=== PATIENT | female | born 1955 | race Caucasian/White ===

== ENCOUNTER 2023-05-19 18:50 | Observation (INO) | payer OTHER, MEDICAID ==
[2023-05-19] MEDS ORDERED: Acetaminophen 325 MG TAB PO PRN (22:15)
[2023-05-19] MEDS ORDERED: HYDROcodone/Acetaminophen 5/325 mg Tablet PO PRN (22:15)
[2023-05-19] MEDS ORDERED: Ondansetron PF 4 MG/2 ML Vial IVP PRN (22:15)
[2023-05-19 22:57] LABS: Troponin I Less than 0.010 ng/mL (< 0.028)
[2023-05-19 23:20] VITALS: BMI 24.9
[2023-05-19] MEDS ORDERED: Gabapentin 300 MG CAP PO SCH (23:45)
[2023-05-19] MEDS ORDERED: hydrOXYzine 25 MG TAB PO PRN (23:47)
[2023-05-20] MEDS ORDERED: Lorazepam 1 MG TAB PO SCH ×2 (00:30→21:00)
[2023-05-20] MEDS: HYDROcodone/Acetaminophen 10/325 mg Tablet PO PRN ×3 (00:38→14:42)
[2023-05-20 02:13] LABS: #Basophils 0.1 10x3/uL (0.0-0.2); #Eosinphils 0.1 10x3/uL (0.0-0.5); #Monocytes 0.9 10x3/uL (0.0-1.1); #Neutrophils 5.4 10x3/uL (1.5-8.4); %Basophils 0.7 % (0.0-2.0); %Eosinophils 1.5 % (0.0-6.0); %Monocytes 9.7 % (0.0-10.0); %Neutrophils 58.9 % (40.0-75.0); Hematocrit 43.8 % (34.9-44.5); Hemoglobin 14.1 g/dL (12.0-15.5); Mean Corpuscular HGB CONC 32.2 g/dL (32.0-36.0); Mean Corpuscular Hemoglobin 30.7 pg (27.0-33.0); Mean Corpuscular Volume 95.2 fl (81.6-98.3); Mean Platelet Volume 10.6 fl (7.4-10.4); Platelet Count 285 10x3/uL (150-450); RBC Distribution Width 13.2 % (11.5-14.5); White Blood Cell (WBC) Count 9.1 10x3/uL (3.5-10.5)
[2023-05-20] MEDS ORDERED: HYDROmorphone 0.5 MG/0.5 ML SYRINGE SLOW IVP SCH (02:15)
[2023-05-20 02:24] LABS: Troponin I Less than 0.010 ng/mL (< 0.028)
[2023-05-20 02:27] LABS: Anion Gap 13 mmol/L (10-20); BUN (Urea Nitrogen) 22 mg/dL (9.8-20.1); Calc. Creatinine Clearance 46 mL/min (70-130); Calcium 8.6 mg/dL (7.8-10.44); Carbon Dioxide 22 mmol/L (23-31); Cardiac Risk 5.6 (Less than 4.5); Chloride 109 mmol/L (98-107); Cholesterol 161 mg/dl (< 200 Desired); Estimated GFR 48; Glucose 156 mg/dL (80-115); HDL Cholesterol 29 mg/dL (>60 Neg Risk); LDL Cholesterol, Calculated 82 mg/dL; Potassium 3.8 mmol/L (3.5-5.1); Sodium 140 mmol/L (136-145); Triglycerides 252 mg/dL (Less than 150)
[2023-05-20] MEDS ORDERED: HumaLOG 300 UNITS/3 ML VIAL SC PRN ×2 (03:29)
[2023-05-20] MEDS ORDERED: Glucagon 1 MG/ML KIT IM PRN (03:29)
[2023-05-20] MEDS ORDERED: Dextrose 5% in Water 1,000 ML IV PRN (03:29)
[2023-05-20] MEDS ORDERED: Dextrose 50% Abboject 50 ML SYRINGE SLOW IVP PRN (03:29)
[2023-05-20] MEDS ORDERED: Sodium Chloride 0.9% 1,000 ML IV SCH (04:00)
[2023-05-20] MEDS ORDERED: AXITINIB 1 MG PO SCH (09:00)
[2023-05-20] MEDS ORDERED: FLU VACC QS2023(65UP)/MF59C/PF 60 MCG/0.5 ML SYRINGE IM ONE (09:00)
[2023-05-20] MEDS ORDERED: Escitalopram Oxalate 10 mg Tablet PO SCH (09:00)
[2023-05-20] MEDS ORDERED: Aspirin 81 mg Enteric Coated Tablet PO SCH (09:00)
[2023-05-20 12:54] VITALS: BP 127/68; TEMP 97.6
[2023-05-20 15:35] LABS: Hemoglobin A1c 5.7 % (4.0-6.0)
[2023-05-20] MEDS ORDERED: Gabapentin 300 MG CAP PO SCH (21:00)
== END 2023-05-20 16:00 | disposition home or self-care (01) ==
LOC: CSHTELE 18:50
PROVIDERS: ADMIT Family Medicine; ATTEND Family Medicine
DX: R07.9 Chest pain, unspecified (principal); I25.10 Atherosclerotic heart disease of native coronary artery without angina pectoris; E11.9 Type 2 diabetes mellitus without complications; I10 Essential (primary) hypertension; E03.9 Hypothyroidism, unspecified; G40.909 Epilepsy, unspecified, not intractable, without status epilepticus; G43.909 Migraine, unspecified, not intractable, without status migrainosus; C64.2 Malignant neoplasm of left kidney, except renal pelvis; Z88.5 Allergy status to narcotic agent; Z88.6 Allergy status to analgesic agent; Z79.899 Other long term (current) drug therapy; Z79.84 Long term (current) use of oral hypoglycemic drugs; Z79.891 Long term (current) use of opiate analgesic; Z95.1 Presence of aortocoronary bypass graft; Z90.710 Acquired absence of both cervix and uterus
CPT/HCPCS: 36415; 36416; 80048; 80061; 83036; 84484; 85025; 93005; 93010; 94760; 96374; G0378; J1170; J7050

== ENCOUNTER 2023-06-09 12:02 | Inpatient (IN) | payer OTHER, MEDICAID ==
[2023-06-09 12:34] LABS: #Basophils 0.1 10x3/uL (0.0-0.2); #Eosinphils 0.1 10x3/uL (0.0-0.5); #Monocytes 0.7 10x3/uL (0.0-1.1); #Neutrophils 4.6 10x3/uL (1.5-8.4); %Basophils 0.8 % (0.0-2.0); %Eosinophils 1.8 % (0.0-6.0); %Lymphocytes 29.6 % (18.0-47.0); %Monocytes 8.9 % (0.0-10.0); %Neutrophils 58.6 % (40.0-75.0); Hematocrit 45.5 % (34.9-44.5); Hemoglobin 15.1 g/dL (12.0-15.5); Mean Corpuscular HGB CONC 33.2 g/dL (32.0-36.0); Mean Corpuscular Hemoglobin 31.4 pg (27.0-33.0); Mean Corpuscular Volume 94.6 fl (81.6-98.3); Mean Platelet Volume 10.8 fl (7.4-10.4); Platelet Count 288 10x3/uL (150-450); RBC Distribution Width 13.2 % (11.5-14.5); Red Blood Cell (RBC) Count 4.81 10x6/uL (3.90-5.03); White Blood Cell (WBC) Count 7.9 10x3/uL (3.5-10.5)
[2023-06-09 12:49] LABS: ALT (SGPT) 12 U/L (8-55); AST (SGOT) 14 U/L (5-34); Albumin 3.7 g/dL (3.4-4.8); Alkaline Phosphatase 72 U/L (40-110); Anion Gap 14 mmol/L (10-20); BUN (Urea Nitrogen) 14 mg/dL (9.8-20.1); Bilirubin, Total 0.3 mg/dL (0.2-1.2); Calc. Creatinine Clearance 0 mL/min (70-130); Calcium 8.4 mg/dL (7.8-10.44); Carbon Dioxide 19 mmol/L (23-31); Chloride 109 mmol/L (98-107); Estimated GFR 45; Globulin 2.4 g/dL (2.4-3.5); Glucose 153 mg/dL (80-115); Potassium 4.2 mmol/L (3.5-5.1); Protein, Total 6.1 g/dL (5.8-8.1); Sodium 138 mmol/L (136-145)
[2023-06-09 12:52] LABS: Troponin I Less than 0.010 ng/mL (< 0.028)
[2023-06-09] MEDS ORDERED: Aspirin Chewable 81 MG TAB ONE ×2 (12:52→15:50)
[2023-06-09] MEDS ORDERED: Metoclopramide HCl 10 MG/2 ML VIAL ONE (14:24)
[2023-06-09] MEDS ORDERED: diphenhydrAMINE 50 MG/ML VIAL ONE (14:27)
[2023-06-09] MEDS ORDERED: Nitroglycerin 0.4 MG TAB (25 Tab Bottle) SL PRN (15:59)
[2023-06-09] MEDS ORDERED: Dextrose 50% Abboject 50 ML SYRINGE SLOW IVP PRN (16:28)
[2023-06-09] MEDS ORDERED: Dextrose 5% in Water 1,000 ML IV PRN (16:28)
[2023-06-09] MEDS ORDERED: Glucagon 1 MG/ML KIT IM PRN (16:28)
[2023-06-09] MEDS ORDERED: HumaLOG 300 UNITS/3 ML VIAL SC PRN ×2 (16:28)
[2023-06-09 16:42] LABS: Magnesium 1.8 mg/dL (1.6-2.6)
[2023-06-09 16:49] LABS: Troponin I Less than 0.010 ng/mL (< 0.028)
[2023-06-09] MEDS ORDERED: Acetaminophen 325 MG TAB PO PRN (18:07)
[2023-06-09] MEDS ORDERED: Acetaminophen 500 MG TAB ONE (19:23)
[2023-06-09] MEDS ORDERED: HYDROcodone/Acetaminophen 10/325 mg Tablet ONE (20:05)
[2023-06-09 21:02] VITALS: BMI 24.9
[2023-06-09] MEDS ORDERED: Glimepiride 2 MG TAB PO SCH (23:30)
[2023-06-10 01:22] LABS: Troponin I 0.013 ng/mL (< 0.028)
[2023-06-10 05:51] LABS: Anion Gap 11 mmol/L (10-20); BUN (Urea Nitrogen) 19 mg/dL (9.8-20.1); Calc. Creatinine Clearance 44 mL/min (70-130); Calcium 8.5 mg/dL (7.8-10.44); Carbon Dioxide 24 mmol/L (23-31); Chloride 111 mmol/L (98-107); Estimated GFR 46; Potassium 4.3 mmol/L (3.5-5.1); Sodium 142 mmol/L (136-145)
[2023-06-10 05:56] LABS: Glucose 50 mg/dL (80-115)
[2023-06-10 06:00] LABS: #Basophils 0.1 10x3/uL (0.0-0.2); #Eosinphils 0.1 10x3/uL (0.0-0.5); #Monocytes 0.8 10x3/uL (0.0-1.1); #Neutrophils 2.7 10x3/uL (1.5-8.4); %Eosinophils 1.9 % (0.0-6.0); %Lymphocytes 48.4 % (18.0-47.0); %Neutrophils 37.6 % (40.0-75.0); Hematocrit 44.2 % (34.9-44.5); Hemoglobin 14.4 g/dL (12.0-15.5); Mean Corpuscular HGB CONC 32.6 g/dL (32.0-36.0); Mean Corpuscular Hemoglobin 31.2 pg (27.0-33.0); Mean Corpuscular Volume 95.7 fl (81.6-98.3); Platelet Count 262 10x3/uL (150-450); RBC Distribution Width 13.3 % (11.5-14.5); Red Blood Cell (RBC) Count 4.62 10x6/uL (3.90-5.03); White Blood Cell (WBC) Count 7.2 10x3/uL (3.5-10.5)
[2023-06-10] MEDS ORDERED: Fioricet 325/50/40 mg Tablet PO PRN (07:23)
[2023-06-10] MEDS ORDERED: Promethazine 25 MG TAB PO PRN (07:23)
[2023-06-10] MEDS ORDERED: hydrOXYzine 25 MG TAB PO PRN (07:23)
[2023-06-10] MEDS ORDERED: Ondansetron ODT 4 MG TAB SL PRN (07:23)
[2023-06-10] MEDS ORDERED: Topiramate 100 MG TAB PO SCH (09:00)
[2023-06-10] MEDS ORDERED: Escitalopram Oxalate 10 mg Tablet PO SCH (09:00)
[2023-06-10] MEDS: Topiramate 100 MG TAB PO SCH ×2 (09:34→20:59)
[2023-06-10] MEDS: Glimepiride 2 MG TAB PO SCH ×2 (09:34→17:00)
[2023-06-10] MEDS: Methocarbamol 500 MG TAB PO SCH ×3 (09:37→20:58)
[2023-06-10] MEDS: Lisinopril 20 MG TAB PO SCH (09:38)
[2023-06-10] MEDS: Aspirin Chewable 81 MG TAB PO SCH (09:39)
[2023-06-10] MEDS: NIFEdipine XL 60 MG ER.TAB PO SCH (09:39)
[2023-06-10] MEDS: Potassium Chloride 10 MEQ TAB PO SCH (09:43)
[2023-06-10] MEDS ORDERED: Lidocaine 4% Patch TD PRN (09:56)
[2023-06-10] MEDS ORDERED: Escitalopram Oxalate 20 mg Tablet PO SCH (10:00)
[2023-06-10] MEDS: HYDROcodone/Acetaminophen 10/325 mg Tablet PO PRN ×2 (10:07→18:09)
[2023-06-10] MEDS ORDERED: INLYTA PO SCH ×2 (10:15→21:00)
[2023-06-10] MEDS ORDERED: hydrALAZINE 20 MG/ML VIAL SLOW IVP PRN (13:15)
[2023-06-10] MEDS: SUMAtriptan Succinate 50 MG TAB PO PRN (20:59)
[2023-06-10] MEDS: INLYTA PO SCH (20:59)
[2023-06-10] MEDS ORDERED: Lorazepam 1 MG TAB PO SCH (21:00)
[2023-06-10] MEDS ORDERED: Transdermal Patch Removal TOP SCH (21:00)
[2023-06-10] MEDS ORDERED: Atorvastatin Calcium 40 MG TAB PO SCH ×2 (21:00)
[2023-06-10] MEDS ORDERED: Gabapentin 300 MG CAP PO SCH ×2 (21:00)
[2023-06-11] MEDS: HYDROcodone/Acetaminophen 10/325 mg Tablet PO PRN ×2 (00:53→06:08)
[2023-06-11 05:42] LABS: #Basophils 0.1 10x3/uL (0.0-0.2); #Eosinphils 0.2 10x3/uL (0.0-0.5); #Monocytes 0.7 10x3/uL (0.0-1.1); #Neutrophils 4.5 10x3/uL (1.5-8.4); %Basophils 0.8 % (0.0-2.0); %Eosinophils 2.7 % (0.0-6.0); %Lymphocytes 25.1 % (18.0-47.0); %Monocytes 9.6 % (0.0-10.0); %Neutrophils 61.5 % (40.0-75.0); Hemoglobin 15.6 g/dL (12.0-15.5); Mean Corpuscular HGB CONC 32.5 g/dL (32.0-36.0); Mean Corpuscular Hemoglobin 30.9 pg (27.0-33.0); Mean Platelet Volume 10.8 fl (7.4-10.4); Platelet Count 253 10x3/uL (150-450); RBC Distribution Width 13.2 % (11.5-14.5); Red Blood Cell (RBC) Count 5.05 10x6/uL (3.90-5.03); White Blood Cell (WBC) Count 7.4 10x3/uL (3.5-10.5)
[2023-06-11 05:48] LABS: Anion Gap 12 mmol/L (10-20); BUN (Urea Nitrogen) 21 mg/dL (9.8-20.1); Calc. Creatinine Clearance 56 mL/min (70-130); Calcium 9.4 mg/dL (7.8-10.44); Carbon Dioxide 21 mmol/L (23-31); Chloride 109 mmol/L (98-107); Estimated GFR 61; Glucose 126 mg/dL (80-115); Potassium 4.2 mmol/L (3.5-5.1); Sodium 138 mmol/L (136-145)
[2023-06-11] MEDS ORDERED: Escitalopram Oxalate 20 mg Tablet PO SCH (09:00)
[2023-06-11] MEDS: Potassium Chloride 10 MEQ TAB PO SCH (09:23)
[2023-06-11] MEDS: Glimepiride 2 MG TAB PO SCH ×3 (09:24→09:55)
[2023-06-11] MEDS: Topiramate 100 MG TAB PO SCH (09:26)
[2023-06-11] MEDS: Methocarbamol 500 MG TAB PO SCH (09:28)
[2023-06-11] MEDS: Aspirin Chewable 81 MG TAB PO SCH (09:28)
[2023-06-11] MEDS: Lisinopril 20 MG TAB PO SCH (09:28)
[2023-06-11] MEDS: NIFEdipine XL 60 MG ER.TAB PO SCH (09:28)
[2023-06-11] MEDS: INLYTA PO SCH (09:29)
[2023-06-11] MEDS: SUMAtriptan Succinate 50 MG TAB PO PRN (09:52)
[2023-06-11 13:36] VITALS: BP 151/83; TEMP 97.6
[2023-06-11] MEDS ORDERED: Magnesium 2 GM/50 ML(in water) 2 GM in Premix 1 BAG IVPB SCH (15:00)
== END 2023-06-11 16:15 | disposition home or self-care (01) | DRG 303 ==
LOC: CSHERS 12:02 → CSHERHOLD 16:01 → CSHTELE 20:59 → OBSVTOIN 06-11 13:57
PROVIDERS: ADMIT Internal Medicine; ATTEND Internal Medicine
DX: I25.810 Atherosclerosis of coronary artery bypass graft(s) without angina pectoris (principal); N17.9 Acute kidney failure, unspecified; E87.20 Acidosis, unspecified; C79.51 Secondary malignant neoplasm of bone; R07.89 Other chest pain; Z95.1 Presence of aortocoronary bypass graft; Z88.5 Allergy status to narcotic agent; Z79.899 Other long term (current) drug therapy; N18.2 Chronic kidney disease, stage 2 (mild); E11.22 Type 2 diabetes mellitus with diabetic chronic kidney disease; I12.9 Hypertensive chronic kidney disease with stage 1 through stage 4 chronic kidney disease, or unspecified chronic kidney disease; E83.42 Hypomagnesemia; E78.5 Hyperlipidemia, unspecified
CPT/HCPCS: 36415; 36416; 71045; 71275; 80048; 80053; 83735; 83880; 84443; 84484; 85025; 93005; 93306; 94760; 96374; 96375; G0378; J0360; J1200; J2765